=== PATIENT | male | born 1945 | race Caucasian/White ===

== ENCOUNTER 2021-02-14 11:26 | Inpatient (IN) ==
[2021-02-14] MEDS ORDERED: SODIUM CHLORIDE 0.9% 1,000 ML IV STA (13:01)
[2021-02-14 13:14] LABS: Basophils # 0.1 10*3/uL (0.0-0.2); Basophils % 0.9 % (0.0-0.8); Eosinophils # 0.3 10*3/uL (0.0-0.87); Eosinophils % 4.6 % (0.00-10.9); Hematocrit 34.1 VOL% (42.0-52.0); Hemoglobin 10.9 GM/DL (14.0-18.0); Immature Granulocytes % 0.3 %; Immature Granulocytes Absolute 0.02 #; Lymphocytes # 1.7 10*3/uL (1.4-4.0); Lymphocytes % 26.5 % (21.2-54.2); Mean Corpuscular Volume 90.9 FL (87-102); Mean Platelet Volume 10.1 FL (9.6-12.0); Monocytes % 8.6 % (1.7-12.7); Neutrophils % 59.1 % (38.7-73.9); Platelet Count 241 T/CUMM (130-400); Red Blood Count 3.75 MC/CUMM (3.8-5.5); Red Cell Distribution Width 15.1 % (9.3-17.3); White Blood Count 6.5 T/CUMM (4-12)
[2021-02-14 13:22] LABS: PT Patient Result 11.2 SECS (10.5-12.0)
[2021-02-14 13:27] LABS: Albumin 3.5 G/DL (3.4-5.0); Bilirubin,Total 0.4 MG/DL (0.2-1.0); Calcium 8.8 MG/DL (8.5-10.1); Osmolality,Calculated 289.1 MOS/KG (273-304); Potassium 4.6 MMOL/L (3.5-5.1); Total Protein 6.8 G/DL (6.4-8.2)
[2021-02-14] MEDS ORDERED: GLUCAGON 1 MG VIAL IM PRN (15:57)
[2021-02-14] MEDS ORDERED: ONDANSETRON 4 MG/2 ML VIAL IV PRN (15:57)
[2021-02-14] MEDS ORDERED: DEXTROSE 50% 25 GM/50 ML VIAL IV PRN (15:57)
[2021-02-14] MEDS ORDERED: MECLIZINE 25 MG TABLET PO PRN (16:05)
[2021-02-14 16:34] LABS: Thyroid Stimulating Hormone 1.81 uIU/ml (0.358-3.74)
[2021-02-14] MEDS: ASPIRIN EC 81 MG TABLET PO SCH (17:41)
[2021-02-14] MEDS: SODIUM CHLORIDE 0.9% 1,000 ML IV SCH (17:42)
[2021-02-14] MEDS: INSULIN LISPRO 100 UNIT/ML SUBCUT SCH ×2 (18:19→22:35)
[2021-02-14] MEDS: ROSUVASTATIN 20 MG TABLET PO SCH (22:34)
[2021-02-14] MEDS: ENOXAPARIN 40 MG/0.4 ML SYRINGE SUBCUT SCH (22:35)
[2021-02-15] MEDS: SODIUM CHLORIDE 0.9% 1,000 ML IV SCH ×2 (01:50→11:07)
[2021-02-15] MEDS ORDERED: hydrALAZINE 20 MG/1 ML VIAL IV ONE (05:28)
[2021-02-15 06:02] LABS: Basophils # 0.1 10*3/uL (0.0-0.2); Basophils % 0.9 % (0.0-0.8); Eosinophils # 0.2 10*3/uL (0.0-0.87); Eosinophils % 3.2 % (0.00-10.9); Hematocrit 31.8 VOL% (42.0-52.0); Hemoglobin 10.5 GM/DL (14.0-18.0); Immature Granulocytes % 0.3 %; Immature Granulocytes Absolute 0.02 #; Lymphocytes # 1.6 10*3/uL (1.4-4.0); Lymphocytes % 23.9 % (21.2-54.2); Mean Corpuscular Volume 88.8 FL (87-102); Mean Platelet Volume 10.1 FL (9.6-12.0); Monocytes % 11.1 % (1.7-12.7); Neutrophils % 60.6 % (38.7-73.9); Platelet Count 197 T/CUMM (130-400); Red Blood Count 3.58 MC/CUMM (3.8-5.5); Red Cell Distribution Width 14.7 % (9.3-17.3); White Blood Count 6.7 T/CUMM (4-12)
[2021-02-15 06:18] LABS: Calcium 8.7 MG/DL (8.5-10.1); Osmolality,Calculated 282.3 MOS/KG (273-304); Potassium 4.1 MMOL/L (3.5-5.1)
[2021-02-15] MEDS: INSULIN LISPRO 100 UNIT/ML SUBCUT SCH ×4 (07:51→21:20)
[2021-02-15] MEDS: MAGNESIUM OXIDE 400 MG TABLET PO SCH ×4 (09:50→21:18)
[2021-02-15] MEDS: amLODIPine 10 MG TABLET PO SCH ×2 (10:09→11:06)
[2021-02-15] MEDS: SPIRONOLACTONE 25 MG TABLET PO SCH (10:10)
[2021-02-15] MEDS: ASPIRIN EC 81 MG TABLET PO SCH (10:10)
[2021-02-15 11:55] LABS: Ferritin 57.6 ng/ml (26-388)
[2021-02-15] MEDS ORDERED: OLMESARTAN 20 MG TABLET PO SCH (17:00)
[2021-02-15] MEDS: ROSUVASTATIN 20 MG TABLET PO SCH (21:19)
[2021-02-15] MEDS: ENOXAPARIN 40 MG/0.4 ML SYRINGE SUBCUT SCH (21:19)
[2021-02-16 08:30] LABS: Basophils # 0.1 10*3/uL (0.0-0.2); Eosinophils # 0.2 10*3/uL (0.0-0.87); Eosinophils % 2.4 % (0.00-10.9); Hemoglobin 11.9 GM/DL (14.0-18.0); Immature Granulocytes % 0.4 %; Immature Granulocytes Absolute 0.03 #; Lymphocytes # 1.6 10*3/uL (1.4-4.0); Lymphocytes % 22.7 % (21.2-54.2); Mean Corpuscular HGB Conc 33.1 GM/DL (32-36); Mean Corpuscular Volume 87.8 FL (87-102); Mean Platelet Volume 9.4 FL (9.6-12.0); Monocytes % 7.9 % (1.7-12.7); Neutrophils % 65.6 % (38.7-73.9); Platelet Count 245 T/CUMM (130-400); Red Cell Distribution Width 14.8 % (9.3-17.3); White Blood Count 7.1 T/CUMM (4-12)
[2021-02-16 08:58] LABS: Calcium 9.1 MG/DL (8.5-10.1); Osmolality,Calculated 280.4 MOS/KG (273-304); Potassium 4.2 MMOL/L (3.5-5.1)
[2021-02-16] MEDS: amLODIPine 10 MG TABLET PO SCH (09:41)
[2021-02-16] MEDS: INSULIN LISPRO 100 UNIT/ML SUBCUT SCH ×2 (09:41→12:33)
[2021-02-16] MEDS: ASPIRIN EC 81 MG TABLET PO SCH (09:41)
[2021-02-16] MEDS: SPIRONOLACTONE 25 MG TABLET PO SCH (09:41)
[2021-02-16 13:00] VITALS: BP 153/66
== END 2021-02-16 16:21 | disposition home or self-care (01) | DRG 312 ==
LOC: N.EDINP 11:26 → N.ED 11:26 → SUATTDRO 15:57 → N.TELES 17:07 → SUATTDRO 02-15 11:28
PROVIDERS: ADMIT Internal Medicine; ATTEND Internal Medicine